=== PATIENT | female | born 1985 ===

== ENCOUNTER 2020-03-12 15:27 | Emergency (ER) | payer SELFPAY ==
[~2020-03-12] VITALS: Ht 162.6 cm; Wt 102.7 kg
[2020-03-12 15:42] VITALS: Ht 162.6 cm; Wt 102.7 kg
[2020-03-12] MEDS ORDERED: GABAPENTIN100 MG (15:42)
[2020-03-12] MEDS ORDERED: CLEOCIN HCL300 MG PO (16:35)
[2020-03-12] MEDS ORDERED: VOLTAREN75 MG PO (16:35)
[2020-03-12] MEDS ORDERED: TALWIN NX1 TAB PO (17:13)
[2020-03-12 17:15] VITALS: BP 122/80
== END 2020-03-12 17:15 | disposition home or self-care (01) ==
LOC: D.ER 15:27
DX: K04.7 Periapical abscess without sinus (principal); K08.89 Other specified disorders of teeth and supporting structures